=== PATIENT | male | born 1980 | race Caucasian/White ===

== ENCOUNTER 2018-02-19 19:15 | Emergency (ER) | payer SELFPAY ==
[2018-02-19] MEDS: HYDROCODONE/APAP (10/325) TAB PO (20:55)
[2018-02-19] MEDS: DIPHTH/TET/ACEL PERTUSS (ADULT) 0.5 ML VIAL IM* (20:56)
[2018-02-19] MEDS: LIDOCAINE 1% (MDV) 10 ML INJ INFIL (21:01)
[2018-02-19] MEDS: BACITRACIN 0.9 GM OINT TOP (22:52)
== END 2018-02-19 22:53 | disposition home or self-care (01) ==
LOC: FTE 19:15
DX: S51.011A Laceration without foreign body of right elbow, initial encounter (principal); W25.XXXA Contact with sharp glass, initial encounter; Y92.810 Car as the place of occurrence of the external cause; Z23 Encounter for immunization
CPT/HCPCS: 12002; 73080-RT; 90471; 90715; 99283-25